=== PATIENT | male | born 1955 | race Caucasian/White ===

== ENCOUNTER 2017-07-23 21:44 | Emergency (ER) | payer BC ==
[2017-07-23 22:06] VITALS: BP 157/94
[2017-07-23] MEDS ORDERED: Amoxicillin/Clavulanate K 875-125 MG Tab PO ONE (22:50)
[2017-07-23] MEDS ORDERED: Ibuprofen 600 MG Tab PO ONE (22:50)
[2017-07-23] MEDS ORDERED: Acetaminophen/HYDROcodone 325-5 MG Tab PO ONE (22:50)
--- NOTE | 2017-07-23 22:57 | EDM.PDOC ---
ED HPI GENERAL MEDICAL PROBLEM - General Chief Complaint: ENT Problem Stated Complaint: BROKEN TOOTH Time Seen by Provider: 07/23/17 21:50 Source of Information: Reports: Patient, Family History Limitations: Reports: No Limitations - History of Present Illness INITIAL COMMENTS - FREE TEXT/NARRATIVE: 62 y.o.w.m came to the ed due to acute dental pain. No other acute medical issues at this time. 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: Reports: Other (see below) Other Treatments STITCHER SET UP OPERATOR AUTOMATIC: temporary filling Left Lower Tooth/Teeth Pain Score (Numeric/FACES): 8 - Related Data Allergies Allergy/AdvReac Type Severity Reaction Status Date / Time No Known Allergies Allergy Verified 07/23/17 22:11 Home Meds: Home Meds Acetaminophen/HYDROcodone [Gilmore 325-5 MG] 1 - 2 tab PO Q6H PRN #12 tab [Rx] Amoxicillin/Potassium Clav [Augmentin 875-125 Tablet] 1 each PO BID #20 tablet 07/23/17 [Rx] Aspirin 81 mg PO DAILY 07/23/17 [History] Ibuprofen [Motrin] 600 mg PO TID PRN #20 tab 07/23/17 [Rx] Past Medical History Cardiovascular History: Reports: High Cholesterol, Hypertension Social & Family History - Tobacco Use Smoking Status *Q: Former Smoker Used Tobacco, but Quit: Yes Month Tobacco Last Used: 06/2000 Second Hand Smoke Exposure: No - Caffeine Use Caffeine Use: Reports: Coffee - Alcohol Use Days Per Week of Alcohol Use: 7 Number of Drinks Per Day: 2 Total Drinks Per Week: 14 - Recreational Drug Use Recreational Drug Use: No ED ROS ENT - Review of Systems Review Of Systems: See Below Constitutional: Reports: No Symptoms HEENT: Reports: Dental Pain Respiratory: Reports: No Symptoms Cardiovascular: Reports: No Symptoms Endocrine: Reports: No Symptoms GI/Abdominal: Reports: No Symptoms : Reports: No Symptoms Musculoskeletal: Reports: No Symptoms Skin: Reports: No Symptoms Neurological: Reports: No Symptoms Psychiatric: Reports: No Symptoms Hematologic/Lymphatic: Reports: No Symptoms Immunologic: Reports: No Symptoms ED EXAM, ENT - Physical Exam Exam: See Below Exam Limited By: No Limitations General Appearance: Alert, WD/WN, Mild Distress Eye Exam: Bilateral Eye: Normal Inspection Ears: Normal External Exam Nose: Normal Inspection Mouth/Throat: Dental Pain, Dental Tenderness, Gum Swelling Head: Atraumatic, Normocephalic Neck: Normal Inspection, Supple, Non-Tender Respiratory/Chest: No Respiratory Distress, Lungs Clear, Normal Breath Sounds Cardiovascular: Normal Peripheral Pulses, Regular Rate, Rhythm, No Edema GI/Abdominal: Normal Bowel Sounds, Soft, Non-Tender, No Organomegaly, No Distention, No Abnormal Bruit, No Mass, Pelvis Stable (Male) Exam: Deferred Rectal (Males) Exam: Deferred Back: Normal Inspection Extremities: Normal Inspection Neurological: Alert, Oriented, CN II-XII Intact, Normal Cognition, Normal Gait Psychiatric: Normal Affect, Normal Mood Skin: Warm, Dry, Intact, Normal Color, No Rash Lymphatic: No Adenopathy Course - Vital Signs Text/Narrative:: 62 y.o.w.m came to the ed due to acute dental pain. No other acute medical issues at this time. PE: Poor dentition, gingivitis, dental decay. Impression: Poor dentition, gingivitis, dental decay. Tx: Abx, Motrin and norco Reexam: Improved Plan: D/C with instructions Last Recorded V/S: Last Vital Signs Temp 36.7 C 07/23/17 21:50 Pulse 90 07/23/17 21:50 Resp 18 07/23/17 21:50 BP 157/94 H 07/23/17 21:50 Pulse Ox 95 07/23/17 21:50 - Orders/Labs/Meds Meds: Medications Discontinued Medications Generic Name Dose Route Start Last Admin Trade Name Freq PRN Reason Stop Dose Admin Hydrocodone Bitart/Acetaminophen 1 tab 07/23/17 22:50 07/23/17 22:55 Gilmore 325-5 Mg PO 07/23/17 22:51 1 tab ONETIME ONE Administration Amoxicillin/Clavulanate Potassium 1 tab 07/23/17 22:50 07/23/17 22:55 Augmentin 875 Mg/125 Mg PO 07/23/17 22:51 1 tab ONETIME ONE Administration Ibuprofen 600 mg 07/23/17 22:50 07/23/17 22:56 Motrin PO 07/23/17 22:51 600 mg ONETIME ONE Administration Departure - Departure Time of Disposition: 22:52 Disposition: Home, Self-Care 01 Condition: Good Clinical Impression: Poor dentition, Dental decay, Gingivitis - Discharge Information Prescriptions: Acetaminophen/HYDROcodone [Gilmore 325-5 MG] 1 - 2 tab PO Q6H PRN #12 tab PRN Reason: for severe pain only Amoxicillin/Potassium Clav [Augmentin 875-125 Tablet] 1 each PO BID #20 tablet Ibuprofen [Motrin] 600 mg PO TID PRN #20 tab PRN Reason: moderate pain Referrals: Igancio Bolden MD [Primary Care Provider] - Forms: ED Department Discharge Additional Instructions: Please apply mouth hygiene, please take the meds as recommended, please f/u with a dentist a.s.a.p. Please come back to the if your symptoms get worse acutely.
== END 2017-07-23 23:05 | disposition home or self-care (01) ==
LOC: FB.ED 21:44
DX: K05.10 Chronic gingivitis, plaque induced (principal); K00.7 Teething syndrome; K02.9 Dental caries, unspecified; Z79.82 Long term (current) use of aspirin; E78.00 Pure hypercholesterolemia, unspecified; I10 Essential (primary) hypertension; Z87.891 Personal history of nicotine dependence
CPT/HCPCS: 99282; A9270